=== PATIENT | male | born 1975 | race Caucasian/White ===

== ENCOUNTER 2017-06-18 08:56 | Emergency (ER) | payer OTHER ==
[~2017-06-18] VITALS: Ht 193 cm; Wt 113.4 kg
[~2017-06-18 08:56] MED LIST: LOTREL 5-20 MG1 CAP; SULFAMETHOXAZOL1 TA6 PO
== END 2017-06-18 12:56 | disposition home or self-care (01) ==
LOC: ER 08:56
DX: I10 Essential (primary) hypertension (principal)